=== PATIENT | female | born 1970 | race Caucasian/White ===

== ENCOUNTER → 2024-08-31 | Outpatient (CLI) | payer OTHER, SELFPAY ==
[2024-08-31 14:37] LABS: Thyroid Stimulating Hormone 1.06 uIU/mL (0.55-4.78)
[2024-09-07 06:35] LABS: Testosterone, Free,Dialysis 0.4 pg/mL (0.1-6.4); Testosterone, Total, Dialysis 4 ng/dL (2-45)
== END | disposition home or self-care (01) ==
LOC: COPL 12:53
PROVIDERS: PCP Physician Assistant; Referring Provider Physician Assistant; Visit Provider Physician Assistant
DX: E03.9 Hypothyroidism, unspecified (principal); R68.82 Decreased libido
CPT/HCPCS: 36415; 84402; 84403; 84443

== ENCOUNTER → 2024-11-29 | Outpatient (CLI) | payer OTHER, SELFPAY ==
[2024-11-29 08:41] LABS: Cardiac Risk Estimate 2.6 RATIO (3.7-5.6); Cholesterol 199 mg/dL (132-200); HDL Cholesterol 77 mg/dL (40-60); LDL Cholesterol,Calculated 105 mg/dL (0-130); Triglycerides 87 mg/dL (30-150)
== END | disposition home or self-care (01) ==
LOC: COPL 07:11
PROVIDERS: PCP Family Medicine; Referring Provider Family Medicine; Visit Provider Family Medicine
DX: E78.2 Mixed hyperlipidemia (principal)
CPT/HCPCS: 36415; 80061

== ENCOUNTER → 2025-03-01 | Outpatient (CLI) | payer OTHER, BC, SELFPAY ==
--- NOTE | 2025-03-01 11:00 | XR_ITS ---
Examination: Breast ultrasound complete, bilateral Date and time of exam: March 01, 2025 1054 hours Comparison February 11, 2024 INDICATIONS: History bilateral breast implants 16 years Technique: Real-time grayscale ultrasonographic imaging bilateral breasts, including all 4 quadrants as well as nipple retroareolar and axillary regions. Findings: Sonographic images right and left breast demonstrated no cystic or solid masses IMPRESSION: BI-RADS Category 1: Negative studies
== END | disposition home or self-care (01) ==
PROVIDERS: PCP Family Medicine; Referring Provider Family Medicine; Visit Provider Family Medicine
DX: R92.323 Mammographic fibroglandular density, bilateral breasts (principal)
CPT/HCPCS: 76641

== ENCOUNTER 2025-07-18 06:46 | Emergency (ER) | payer OTHER, SELFPAY ==
--- NOTE | 2025-07-18 06:50 | EKG_ITS ---
[facility] Test Date: 2025-07-18 Pat Name: CARLOS HERNANDEZ Department: Room: - Gender: Female Can Intake Worker: : 1970 Requested By: ED Temporary Provider Order Number: [id number] Reading MD: ED Temporary Provider Measurements Intervals [place] Rate: 101 P: 79 VA: 136 QRS: 84 QRSD: 81 T: 55 QT: 319 QTc: 413 Interpretive Statements SINUS TACHYCARDIA ABNORMAL RHYTHM ECG No previous ECG available for comparison /[id number]/S0/[id number].pdf
[2025-07-18 07:02] VITALS: BP 121/80; PULSE 104; RESP 16; TEMP 36.6; O2SAT 100; BMI 20.9
--- NOTE | 2025-07-18 07:02 | EDNOTE_ITS ---
ED Syncope RME/HPI General Chief Complaint: General Adult/Misc Complain Stated Complaint: PASSED OUT, HIT HEAD Time Seen by Provider: 07/18/25 07:01 Arrival date/time: 07/18/25 06:46 RME / HPI RME / HPI narrative: See [facility] for Dr. Acuna's HPI documentation. Related Data Previous Rx's ?Medication ?Instructions ?Recorded Hydrocodone/Acetaminophen * (NORCO 1 tab PO Q4H PRN pa in #20 tabs 07/23/16 5/325 *) Allergies Allergy/AdvReac Type Severity Reaction Status Date / Time codeine Allergy Intermediate HIVES Verified 07/18/25 06:47 Penicillins Allergy Intermediate HIVES Verified 07/18/25 06:47 Opioids - Morphine Analogues AdvReac Intermediate CAUSES Verified 07/18/25 06:47 PATIENT TO FEEL HIGH --ITCHING Review of Systems Review of Systems Systems Reviewed: All systems reviewed, normal except as documented Past Medical History Past Medical History CARDIAC: Negative Congestive Heart Failure RESPIRATORY: Negative Chronic Obstructive Pulmonary Disease (COPD) GENITOURINARY: Negative Renal Disease ENDOCRINE: Negative Diabetes Mellitus Type 1 or Diabetes Mellitus Type 2 ED Exam Narrative Physical exam: See [facility] for Dr. Acuna's physical exam documentation. Course Quality Measures none Orders Category Date Time Status Bedside COVID-19 Antigen Test NOW Care 07/18/25 07:03 Completed EKG (ED ONLY) *Do not use* NOW Care 07/18/25 06:51 Completed Orthostatic Vitals NOW Care 07/18/25 07:03 Completed Saline [Insert IV] NOW Care 07/18/25 07:[address] cervical spine wo con Stat Exams 07/18/25 07:[address] facial bones wo con Stat Exams 07/18/25 07:[address] head/brain wo con Stat Exams 07/18/25 07:04 Completed EKG (ED Only) Stat Exams 07/18/25 06:50 Draft XR chest 1V portable Stat Exams 07/18/25 07:04 Completed BNP [B-Type Natriuretic Peptide] Stat Lab 07/18/25 07:16 Completed Beta Hydroxybutyrate Stat Lab 07/18/25 07:16 Completed Bilirubin,Direct Stat Lab 07/18/25 07:16 Completed CBC Stat Lab 07/18/25 07:16 Completed CMP [Comprehensive Metabolic Panel] Stat Lab 07/18/25 07:16 Completed D-Dimer Stat Lab 07/18/25 07:16 Completed Influenza A & B Rapid Panel Stat Lab 07/18/25 07:55 Completed Lipase Stat Lab 07/18/25 07:16 Completed Magnesium Stat Lab 07/18/25 07:16 Completed TSH [Thyroid Stimulating Hormone] Stat Lab 07/18/25 07:16 Completed Troponin I Stat Lab 07/18/25 07:16 Completed Troponin I Stat Lab 07/18/25 10:10 Completed UA, C/S IF [Urinalysis, C/S if Indicated] Stat Lab 07/18/25 09:13 Completed VBG [Venous Blood Gas] Stat Lab 07/18/25 07:16 Completed Ketorolac Inj [Toradol Inj] Med 07/18/25 07:03 Discontinued 30 mg IVP X1 ONE Ondansetron Inj [Zofran Inj] Med 07/18/25 07:03 Discontinued 4 mg IVP X1 ONE Sodium Chloride 0.9% 1000 ml [Ns] 1,000 ml Med 07/18/25 07:03 Discontinued IV 999 mls/hr Vital Signs Vital signs: Vital Signs Temperature 97.9 F 07/18/25 07:02 Pulse Rate 104 H 07/18/25 07:02 Respiratory Rate 16 07/18/25 07:02 Blood Pressure 121/80 07/18/25 07:02 Pulse Oximetry (%) 100 07/18/25 07:02 Oxygen Delivery Method Room Air 07/18/25 07:02 Pulse ox is 100% on room air which is adequate. Syncope MDM Narrative MDM Narrative:: This section includes all my notes and documentations, including HPI, PE, and ED course. Harsh Acuna MD HPI: 55-year-old female here to be evaluated after syncopal episodes just [employer]. She was at home. [place] dizzy and apparently passed out. heard the fall. Found her on the floor in hallway. Currently, she reports no headache or dizziness. No speech or visual impairment. No facial droop. No loss of power in arms or legs. No chest pain. No other complaints. ROS: All negative except as documented in HPI. Physical Exam: General:? Alert and oriented.? No acute distress.? Eyes:? Conjunctivae and lids clear.? EOMI.? PERRL. ENT:? No signs of head trauma. Neck:? Supple.? No tenderness. Heart:? RRR. Lungs:? No respiratory distress.? Good air movement.? No rhonchi, wheezing, rales.? Chest:? No tenderness. Abdomen:? Soft and nontender.? Normal bowel sounds.? No distension.? No rebound or guarding.? Back:? No tenderness.? Skin:? Warm and dry.? In the forehead, nickel sized hematoma noted. Neuro:? Alert and oriented X 3.? Cranial Nerves II-XII grossly intact.? No peripheral motor deficits. Musculoskeletal:? All major joints and bones are not tender with no limited ROM. I reviewed all diagnostic test results: My interpretation of the EKG: NSR (101 bpm) with no ST-T changes. My interpretation of the chest x-ray is: NAD. My review of the CT head report is: No acute findings. My review of the CT face report is: No acute fracture. My review of the CT cervical spine report is: No acute fracture. Blood tests and urine tests are unremarkable. Covid/Influenza are negative. At this point, diagnoses include: Syncope of unclear etiology Forehead contusion Treatment here included: Zofran 4 mg IV Toradol 30 mg IV IVF Patient remained stable through ED course. Recommended more outpatient workup. Based on my best medical judgment, made decision no further evaluation or treatment indicated at this time. Patient understands and agrees to the discharge instructions customized and printed, see below. Discharge instructions from Dr. Acuna: 1. After extensive evaluation, there is no life-threatening condition.? Such as stroke or brain tumor or heart attack. And there is no brain injury or broken neck. 2. For your forehead contusion, apply ice for 20 minutes every 2-3 hours today and tomorrow. 3. Tylenol/ibuprofen as needed. 4. See a private doctor on 07/19/2025 for recheck. To make sure there is no serious underlying heart condition, ask to help you get more tests for your heart that cannot be done here in the ER.? Such as Holter Monitor (cardiac monitoring at home from a day to even a month), heart stress test (on treadmill or with medication), echocardiogram (imaging of your heart structures), heart catherization (checking for blockages in your heart arteries), and a referral to see a [employer] Goods Drill Operator. Ask for help with more investigation. Such as MRI imaging studies, EEG (monitoring electrical activity in the brain), and referrals to see specialists (such as neurologist). 5. Seek immediate medical care with worsening or with any concerns.?? Harsh Acuna MD Patient data External records reviewed:: None (No previous ED visits for review ) Clinical information provided by:: patient Social determinants that could affect healthcare access:: none Patient has the following chronic illnesses:: None reported How is presenting disease/condition affected by chronic disease/condition?: no chronic disease Evaluation data The following diagnostics were reviewed and interpreted by me:: lab results, radiology exam(s) and EKG tracing(s) (My interpretation of the EKG: NSR (101 bpm) with no ST-T changes. Harsh Acuna MD) Lab and/or radiology exams considered but not ordered:: None Interpretation Summary: I reviewed all diagnostic test results: My interpretation of the EKG: NSR (101 bpm) with no ST-T changes. My interpretation of the chest x-ray is: NAD. My review of the CT head report is: No acute findings. My review of the CT face report is: No acute fracture. My review of the CT cervical spine report is: No acute fracture. Blood tests and urine tests are unremarkable. Covid/Influenza are negative. Medications / Prescriptions Medications or Prescriptions considered but not ordered:: None Medication administrations:: Medication Administration History Discontinued Medications Sodium Chloride (Ns) 1,000 mls @ 999 mls/hr IV .Q1H1M ONE Stop: 07/18/25 08:03 Last Infusion: 07/18/25 08:41 Dose: Infused Documented By: Admin: 07/18/25 07:40 Dose: 999 mls/hr Documented By: MARY Ketorolac Tromethamine (Ketorolac Inj 30 Mg/Ml Vial) 30 mg IVP X1 ONE Stop: 07/18/25 07:04 Last Admin: 07/18/25 07:39 Dose: 30 mg Documented By: TM Ondansetron HCl (Ondansetron Inj 2 Mg/Ml Inj 2 Ml) 4 mg IVP X1 ONE; Protocol Stop: 07/18/25 07:04 Last Admin: 07/18/25 07:38 Dose: 4 mg Documented By: MARY Treatment here included: Zofran 4 mg IV Toradol 30 mg IV IVF Consultations Consultation(s) initiated? (list below): No Diagnosis Syncope Differential Diagnosis: syncope due to orthostatic hypotension, vasovagal syncope, subarachnoid hemorrhage and dehydration Most likely diagnosis given after review of the tests above:: Syncope Forehead contusion Admission Indicated Admission indicated?: not indicated Explain why admission is indicated or not indicated:: With no condition needing emergent intervention, there was no indication for admission. Admission Request Was there a request for admission?: No Disposition Plan Disposition Plan: Discharge Discharge Attestation Discharge Attestation: The patient and all family members were given an opportunity to ask questions and understood the discharge instructions. Discharge instructions specifically effects, indications for sooner follow up or return to the emergency department, and the expected course of current diagnosis. Patient condition: Stable Discharge Plan Plan Patient Disposition: HOME (Self Care) Prescriptions/Referrals Prescriptions/Med Rec: No Action Hydrocodone/Acetaminophen * (NORCO 5/325 *) 1 TAB tablet 1 tab PO Q4H PRN (Reason: pain) Qty: 20 0RF Referrals: Fuentes Bernal MD [Primary Care Provider, Family Practice] - In 1 week Problem List Clinical Impression: Syncope, Forehead contusion Patient/Caregiver Discharge Instructions Discharge Activity: activity as tolerated Education Materials: ED Head Injury (Adult), ED Fainting, Uncertain Cause Additional Instructions: Discharge instructions from Dr. Acuna: 1. After extensive evaluation, there is no life-threatening condition.? Such as stroke or brain tumor or heart attack. And there is no brain injury or broken neck. 2. For your forehead contusion, apply ice for 20 minutes every 2-3 hours today and tomorrow. 3. Tylenol/ibuprofen as needed. 4. See a private doctor on 07/19/2025 for recheck. To make sure there is no serious underlying heart condition, ask to help you get more tests for your heart that cannot be done here in the ER.? Such as Holter Monitor (cardiac monitoring at home from a day to even a month), heart stress test (on treadmill or with medication), echocardiogram (imaging of your heart structures), heart catherization (checking for blockages in your heart arteries), and a referral to see a Optical Goods Drill Operator. Ask for help with more investigation. Such as MRI imaging studies, EEG (monitoring electrical activity in the brain), and referrals to see specialists (such as neurologist). 5. Seek immediate medical care with worsening or with any concerns.?? Print Language: Welsh Stand Alone Forms: Re Award Info., Patient Portal Info Letter
--- NOTE | 2025-07-18 07:04 | XR_ITS ---
Examination: CT maxillofacial, without intravenous contrast. 2-D sagittal reconstructions. 3-D reconstructions. Date and time of exam: July 18, 2025, 0811 hours INDICATIONS: Patient fell this morning with injury to the face, facial pain CTDI: vol (mGy): 13.8 DLP: (mGycm): 215 Technique: Multiple axial images of maxillofacial region, 3.0 mm slice thickness. 2-D sagittal and coronal reconstructions. 3-D reconstructions. Low dose protocols were performed. One or more of the following dose reduction techniques were used; automated exposure control, adjustment of the mA and/or KV according to patient size, use of iterative reconstruction technique. Findings: Frontal bones frontal sinuses intact Orbital rims intact No depression zygomatic arches No nasal bone fracture Optic globes exhibit symmetry Pterygoid plates maxilla and the mandible intact IMPRESSION: No acute facial fracture.
--- NOTE | 2025-07-18 07:04 | XR_ITS ---
Examination: CT cervical spine without contrast 2-D sagittal reconstructions 2-D coronal reconstructions 3-D reconstructions. Exam date and time: July 18, 2025, 0811 hours INDICATIONS: Patient fell this morning with injury to the neck, neck pain CTDI:vol (mGy) 48.4 DLP: (mGycm) 924 Technique: Multiple 2 mm axial sections of the cervical spine have been obtained. The coronal and sagittal reconstructions have been obtained. 3-D reconstructions have been obtained. Low dose protocols were performed. One or more of the following dose reduction techniques were used; automated exposure control, adjustment of the mA and/or KV according to patient size, use of iterative reconstruction technique. Findings: Axial sections demonstrate intact base of the skull. C1 exhibit satisfactory relationship to the odontoid. No acute cervical vertebral body fracture seen. Alignment posterior spinous processes satisfactory. Impression: No acute cervical fracture.
--- NOTE | 2025-07-18 07:04 | XR_ITS ---
EXAMINATION: AP chest single view TECHNIQUE: AP portable upright chest single view Date and time: July 18, 2025, 0753 hours INDICATIONS: Shortness of breath today after falling FINDINGS: Normal heart size Lungs are clear. No pneumothorax. Clavicles visualized bones of the shoulders, ribs appear intact IMPRESSION: No pneumothorax pulmonary contusion or hemothorax
--- NOTE | 2025-07-18 07:04 | XR_ITS ---
Examination: CT brain head without contrast. 2-D sagittal coronal reconstructions Date and time of exam: July 18, 2025, 0811 hours Syncopal episode today, patient fell with injury to the head, head pain CTDI: vol (mGy): 48.4 DLP: (mGycm): 924 Technique: Multiple CT axial sections of the brain have been obtained, 5 mm slice thickness. Contrast has not been administered. 2-D sagittal, coronal reconstructions have been obtained Low dose protocols were performed. One or more of the following dose reduction techniques were used; automated exposure control, adjustment of the mA and/or KV according to patient size, use of iterative reconstruction technique. Findings: No significant ventricular enlargement. Left frontal scalp hematoma Intra-axial or extra-axial hemorrhage density is not seen. No mass effect or midline shift Basal cisterns are not remarkable. Fourth ventricle is midline. Cranial vault intact. Impression: Negative for acute hemorrhage, mass effect or midline shift
[2025-07-18 07:10] VITALS: BP 122/83; BP 124/85; BP 127/82; PULSE 86; PULSE 93; PULSE 98
--- NOTE | 2025-07-18 07:25 | PC.NURSE ---
Pt comes in through triage, ambulates independently w/steady gait to room, GCS 15. States she went to [place], was walking in her lee after and passed out, hit head and has large hematoma to left side of head. States she is having 6/10 pain to head, denies any blood thinners. States she has had a head cold the past few days.
[2025-07-18] MEDS: ONDANSETRON INJ 2 MG/ML INJ 2 ML 4 MG IVP (07:38)
[2025-07-18] MEDS: KETOROLAC INJ 30 MG/ML VIAL IVP (07:39)
[2025-07-18] MEDS: SODIUM CHLORIDE 0.9% 1000 ML 1,000 ML 999 ML IV (07:40)
[2025-07-18 07:42] LABS: Basophils # (Auto) 0.0 Thou/mm3 (0.0-0.2); Basophils % (Auto) 0 % (0-2.5); Eosinophils # (Auto) 0.1 Thou/mm3 (0.0-0.5); Eosinophils % (Auto) 1 % (0-10); Hematocrit 42.6 % (36.0-46.0); Hemoglobin 14.5 g/dL (12.0-16.0); Immature Granulocytes Auto 0.03 Thou/mm3 (0.00-0.00); Lymphocytes # (Auto) 1.1 Thou/mm3 (1.0-4.8); Lymphocytes % (Auto) 10 % (10-50); Mean Corpuscular HGB Conc 34.0 g/dl (31.0-37.0); Mean Corpuscular Hemoglobin 31.2 pg (25.0-35.0); Mean Corpuscular Volume 92 fL (80-100); Monocytes # (Auto) 0.7 Thou/mm3 (0.0-0.8); Monocytes % (Auto) 7 % (0-12); Neutrophils # (Auto) 8.2 Thou/mm3 (1.8-7.7); Neutrophils % (Auto) 81 % (37-80); Nucleated Red Blood Cell # 0.00 Thou/mm3 (0.00-0.00); Nucleated Red Blood Cell % 0 /100 WBC (0); Platelet Count 265 Thou/mm3 (140-440); RDW Standard Deviation 40.1 fL (36.4-46.3); Red Blood Count 4.65 Miln/mm3 (4.00-5.20); White Blood Count 10.2 Thou/mm3 (3.6-11.0)
[2025-07-18 07:51] LABS: Beta Hydroxybutyrate 0.2 mmol/L (<0.6)
[2025-07-18 07:53] LABS: B-Type Natriuretic Peptide 21 pg/mL (0-100)
[2025-07-18 07:58] LABS: D-Dimer < 250 ng/mL (<600)
[2025-07-18 08:06] LABS: Alanine Aminotransferase < 7 U/L (10-49); Albumin, Serum 5.1 gm/dL (3.5-5.0); Albumin/Globulin Ratio 2.4 (1.2-2.2); Alkaline Phosphatase 60 U/L (46-116); Anion Gap 9 (7-16); Aspartate Amino Transferase 19 U/L (0-34); BUN/Creatinine Ratio 10 Ratio (12-20); Bilirubin,Direct 0.1 mg/dL (0.0-0.3); Bilirubin,Total 0.5 mg/dL (0.3-1.2); Blood Urea Nitrogen 9 mg/dL (9-23); Calcium 9.6 mg/dL (8.3-10.6); Calcium (Corrected) 9.6 mg/dL (8.5-10.1); Carbon Dioxide 28.2 mMol/L (20.0-31.0); Chloride 102 mMol/L (98-107); Creatinine (Component) 0.9 mg/dL (0.6-1.3); Estimated Creatinine Clearance 59.6 mL/min (>60); Globulin 2.1 gm/dL (2.3-3.5); Glucose 108 mg/dL (74-106); Lipase 28 U/L (12-53); Magnesium 1.8 mg/dL (1.6-2.6); Osmolality,Calculated 277 (275-295); Potassium 3.5 mMol/L (3.4-5.1); Sodium 139 mMol/L (136-145); Thyroid Stimulating Hormone 0.61 uIU/mL (0.55-4.78); Total Protein 7.2 gm/dL (5.7-8.2); Troponin I < 0.002 ng/mL (0.0-0.045); eGFR > 60 See Note
[2025-07-18 08:22] LABS: Influenza A Ag Negative; Influenza B Ag Negative
[2025-07-18 09:04] LABS: Base Excess, Venous 4 (-3-3); O2 Saturation, Venous 45 % (96-97); PCO2, Venous 46 mmHg (36-56); PO2, Venous 24 mmHg (15-58); pH, Venous 7.41 (7.33-7.66)
[2025-07-18 09:18] VITALS: BP 131/73; PULSE 78; RESP 18; TEMP 36.9; O2SAT 98
[2025-07-18 09:45] LABS: Collection Type, Urine Clean Catch
[2025-07-18 09:49] LABS: Bilirubin,Urine Negative (Negative); Blood,Urine Trace (Negative); Clarity,Urine Clear (Clear/Hazy); Color,Urine Colorless (Lt Yel-Yel); Culture Indicated,Urine Not Indicated; Glucose, Urine Negative (Negative); Ketones,Urine Negative (Negative); Leukocyte Esterase,Urine Negative (Negative); Nitrite,Urine Negative (Negative); PH,Urine 7.5 (5.0-7.0); Protein,Urine Negative (Neg - Trace); RBC,Urine 2 /hpf (0-3); Specific Gravity,Urine 1.007 (1.001-1.035); Squamous Epithelial Cell,Urine 1 /hpf (0-5); Urobilinogen,Urine Negative mg/dL (0.0-1.0); WBC,Urine 1 /hpf (0-5)
[2025-07-18 10:37] LABS: Troponin I < 0.002 ng/mL (0.0-0.045)
[2025-07-18 11:03] VITALS: PULSE 80; RESP 16; O2SAT 98
== END 2025-07-18 11:07 | disposition home or self-care (01) ==
PROVIDERS: Emergency Provider Emergency Medicine; PCP Family Medicine
DX: S00.83XA Contusion of other part of head, initial encounter (principal); R55 Syncope and collapse; R06.02 Shortness of breath; S19.9XXA Unspecified injury of neck, initial encounter; S09.93XA Unspecified injury of face, initial encounter; R00.0 Tachycardia, unspecified; W19.XXXA Unspecified fall, initial encounter; Y92.008 Other place in unspecified non-institutional (private) residence as the place of occurrence of the external cause
CPT/HCPCS: 36415; 70450; 70486; 71045; 72125; 80053; 81001; 82010; 82248; 82803; 83690; 83735; 83880; 84443; 84484; 85025; 85379; 87502; 87635; 93005; 96361; 96374; 96375; 99284; J1885; J2405; J7030